=== PATIENT | male | born 1970 | race Caucasian/White ===

== ENCOUNTER 2016-10-24 07:42 | Day surgery (SDC) | payer MEDICAID ==
[~2016-10-24 07:42] MED LIST: DIPHENHYDRAMINE HCL 50 MG/ML VIAL ONE; EPINEPHRINE INJ 1 MG/10 ML DISP.SYRIN ONE; FLUMAZENIL INJ 0.5 MG/5 ML VIAL IV ONE; GLUCAGON,HUMAN RECOMB 1 MG INJ ONE; NALOXONE HCL INJ/PF 0.4 MG/1 ML SDV ONE; ONDANSETRON HCL INJ/PF 4 MG/2 ML SDV ONE; PROMETHAZINE HCL INJ 25 MG/1 ML VIAL ONE
[2016-10-24] MEDS: MIDAZOLAM 2 MG/2 ML INJ ONE ×2 (08:09→08:14)
[2016-10-24] MEDS: FENTANYL CITRATE INJ/PF 100 MCG/2 ML AMPUL ONE ×3 (08:11→08:16)
--- NOTE | 2016-10-24 08:56 | Operative Report ---
Operative Report DATE OF SURGERY: 10/24/16 Operative Report: The risks benefits and alternatives of the procedure explained to the patient in detail and informed consent is obtained that GIF Olympus video scope was inserted into the patient's mouth and hypopharynx the esophagus is identified intubated and insufflated the scope was then advanced through the esophagus stomach and duodenum retroflexion maneuver is done the esophagus stomach and first and second portions of the duodenum examined PREOPERATIVE DIAGNOSIS: Gastroesophageal reflux disease. Gar's esophagus with dysplasia POSTOPERATIVE DIAGNOSIS: Gar's esophagus which is improved but still having some small islands that are present this was subsequently ablated. Hiatal hernia OPERATION: EGD with ablation SURGEON: JERRY WILLARD ANESTHESIA: Moderate Sedation - 4 mg of Versed, 100 g of fentanyl TISSUE REMOVED OR ALTERED: None. COMPLICATIONS: None. ESTIMATED BLOOD LOSS: none. INTRAOPERATIVE FINDINGS: Gar's esophagus is noted. Hiatal hernia. Improvement in his gastritis PROCEDURE: Patient tolerated the procedure well. No immediate postprocedure complications are noted. Patient is discharged in good condition. Discharge date: 10/24/16 Discharge diet: Regular Discharge activity: Regular. He does have a 2-3 week follow-up to discuss findings. Surveillance EGD in 6-8 weeks. Patient is instructed to call the office or proceed to the emergency room after any further problems or questions. Continue with PPI for now.
[2016-10-24 09:40] VITALS: BP 124/80
== END 2016-10-24 09:35 | disposition home or self-care (01) ==
LOC: END 07:42
PROVIDERS: ATTEND Internal Medicine Gastroenterology
PROC: 0D558ZZ Destruction of Esophagus, Via Natural or Artificial Opening Endoscopic (ICD-10-PCS; principal; 2016-10-24 08:00)
DX: K22.719 Barrett's esophagus with dysplasia, unspecified (principal); K21.9 Gastro-esophageal reflux disease without esophagitis; K44.9 Diaphragmatic hernia without obstruction or gangrene; E78.2 Mixed hyperlipidemia; Z79.899 Other long term (current) drug therapy; Z88.0 Allergy status to penicillin
CPT/HCPCS: 43270; J2250; J3010; J0171; J1200; J1610; J2310; J2405; J2550; J3490